=== PATIENT | female | born 1980 | race Caucasian/White ===

== ENCOUNTER 2019-08-22 18:10 | Emergency (ER) | payer BC ==
[~2019-08-22] VITALS: Ht 170.2 cm; Wt 88.5 kg
[2019-08-22 18:27] VITALS: BP_SYST 125
--- NOTE | 2019-08-22 18:30 | NUR ---
Patient triaged and placed in waiting room. VSS and patient appears in no acute distress at this time. Accompanied by , awaiting available bed, and MD notified of need for MSE.
--- NOTE | 2019-08-22 18:57 | NUR ---
PATIENT PLACED IN ER #3 AT 1850
--- NOTE | 2019-08-22 19:10 | NUR ---
Patient AAO x 4 ambulates to ER bed 03 with complaints of intermittent cramping and vaginal spotting x 1 week. Denies pain at this time. She states she is currently but does not know for how long. G3, P1, A1. LMP 05/28/2019. Next appointment with OB is in August. Even chest rise and fall with respirations. Patient has been encouraged to provide a urine sample. Will continue to monitor.
[2019-08-22] MEDS ORDERED: NACL 0.9% 1,000 ML IV ONE (19:45)
[2019-08-22 20:10] LABS: BASOPHILS # (AUTO) 0.1 K/uL (0.0-0.2); EOSINOPHILS # (AUTO) 0.1 K/uL (0.0-0.4); EOSINOPHILS % (AUTO) 1.3 % (0.0-4.0); HEMATOCRIT 37.7 % (36-48); HEMOGLOBIN 12.5 g/dL (12.0-16.0); LYMPHOCYTES # (AUTO) 2.1 K/uL (1.0-5.5); MEAN CORPUSCULAR HEMOGLOBIN 31 pg (27-31); MEAN CORPUSCULAR HGB CONC 33 % (32-36); MEAN CORPUSCULAR VOLUME 93 fL (79.0-98.0); MONOCYTES # (AUTO) 0.6 K/uL (0.0-1.0); MONOCYTES % (AUTO) 7.5 % (1.7-9.3); NEUTROPHILS # (AUTO) 4.6 K/uL (1.8-7.7); NEUTROPHILS % (AUTO) 62.2 % (40.0-70.0); PLATELET COUNT (AUTO) 172 K/uL (130-430); RED BLOOD CELL COUNT(AUTO) 4.07 MIL/uL (4.2-6.2); RED CELL DISTRIBUTION WIDTH 13.5 % (9.0-15.0); WHITE BLOOD COUNT (AUTO) 7.5 K/uL (4.8-10.8)
--- NOTE | 2019-08-22 20:24 | NUR ---
Pt taken to ultrasound in stable condition
[2019-08-22 20:27] LABS: BILIRUBIN,URINE NEGATIVE (NEGATIVE); BLOOD, URINE 3+ (NEGATIVE); COLOR,URINE YELLOW (YELLOW); GLUCOSE,URINE NEGATIVE (NEGATIVE); KETONES,URINE NEGATIVE (NEGATIVE); LEUKOCYTE ESTERASE ,URINE NEGATIVE (NEGATIVE); NITRITE, URINE NEGATIVE (NEGATIVE); PH,URINE 5.5 (5.0-8.0); PROTEIN URINE TRACE (NEGATIVE); UROBILINOGEN,URINE 0.2 (0.2-1.0)
[2019-08-22 20:38] LABS: CLARITY/URINE SLIGHTLY HAZY (CLEAR)
--- NOTE | 2019-08-22 20:52 | NUR ---
Patient returns from ultrasound at this time.
--- NOTE | 2019-08-22 21:08 | NUR ---
#20 gauge angiocath placed to R antecubital. Use of asceptic technique. Opsite placed over site. Blood return noted. Flushed with 10 mL of normal saline. No evidence of infiltration noted. Patient tolerated well.
--- NOTE | 2019-08-22 21:40 | NUR ---
Patient given written and verbal discharge instructions and verbalizes understanding. ER MD Cisneros discussed with patient the results and treatment provided. Patient in stable condition. ID arm band removed. No Rx given. Patient educated on pain management and to follow up with PMD. Pain Scale 0. Opportunity for questions provided and answered. Medication side effect fact sheet provided.
[2019-08-22 21:41] VITALS: BP_SYST 136
[2019-08-22 21:57] LABS: BACTERIA,URINE MODERATE /HPF (None Seen); RBC,URINE 0-3 /HPF (0-3)
== END 2019-08-22 21:40 | disposition home or self-care (01) ==
LOC: SED 18:10
DX: O26.851 Spotting complicating pregnancy, first trimester (principal); Z3A.01 Less than 8 weeks gestation of pregnancy
CPT/HCPCS: 36415; 76801; 76817; 81000; 81025; 84702; 85025; 87086; 99284; J7030